=== PATIENT | male | born 1965 | race Caucasian/White ===

== ENCOUNTER 2017-10-16 06:36 | Inpatient (IN) | payer OTHER ==
[~2017-10-16] VITALS: Ht 175.3 cm; Wt 72.6 kg
[2017-10-16] VITALS (12 sets, daily range): BP systolic 126–155; BP diastolic 65–92
--- NOTE | 2017-10-16 06:10 | Anethesia Preoperative Eval ---
Anesthesia Pre-op PMH/ROS General Date of Evaluation: Oct 16, 2017 Time of Evaluation: 07:23 Anesthesiologist: Noe ASA Score: ASA 2 Mallampati Score Class I : Soft palate, uvula, fauces, pillars visible Class II: Soft palate, uvula, fauces visible Class III: Soft palate, base of uvula visible Class IV: Only hard plate visible Mallampati Classification: Class II Surgeon: Virgilio Diagnosis: Neck Pain Surgical Procedure: ACDF C5-6, C4-5, ADR 3-4 Anesthesia History: none Family History: no anesthesia problems Allergies: Coded Allergies: No Known Allergies (Unverified , 10/16/17) Medications: see eMAR Past Medical History Neurologic/Psychiatric: Reports: depression/anxiety PSxH Narrative: Bilateral Hernia Repair Anesthesia Pre-op Phys. Exam Physician Exam Vital Signs Date Time Temp Pulse Resp B/P (MAP) Pulse Ox O2 Delivery O2 Flow Rate FiO2 10/16/17 07:04 97.5 56 17 129/78 98 Room Air Constitutional: NAD Neurologic: CN 2-12 intact Cardiovascular: RRR Respiratory: CTA Gastrointestinal: S/NT/ND Airway Exam Mallampati Score: Class II MO: full ROM: limited Teeth: intact Anesthesia Pre-op A/P Risk Assessment & Plan Assessment: ASA 2 Plan: GA, GlideScope Go, BIS Status Change Before Surgery: No Pre-Antibiotics Dru Grams Ancef IV Given Within 1 Hr of Incision: Yes Time Given: 07:41 Wesly Liu MD Oct 16, 2017 06:10
[~2017-10-16 06:36] MED LIST: Acetaminophen (Non formulary) 100 ML IV ONE; Atropine Inj 1mg/10ml Syr IV PRN; DiphenhydrAMINE 50mg/ml Inj IVP PRN; HYDROcodone/Acetamin 7.5/325 tab ORAL PRN; Hydromorphone 0.5mg/0.5ml inj IVP PRN; Ketorolac 30mg Inj IV PRN; Ketorolac 60mg Inj IV PRN; LORazepam Inj 2mg/ml 1ml IV PRN; LR 1000ml 1,000 ML IVLG SCH; Labetalol 5mg/ml 20ml vial IV PRN; Midazolam 2mg/2ml Inj IVP PRN; NKM; Norco 5mg/325mg tab ORAL PRN; fentaNYL 100 mcg/2 mL IV PRN; oxyCODONE HCL/Acetaminophen 5/325mg ORAL PRN
[2017-10-16] MEDS ORDERED: NS IVPB ONE (07:00)
[2017-10-16] MEDS ORDERED: GENTAMICIN IVPB ONE (07:00)
[2017-10-16] MEDS ORDERED: ceFAZolin 2gm/D5W 50ml Premix IV ONE (07:00)
[2017-10-16] MEDS ORDERED: VITAMIN B125000 MCG PO (07:10)
[2017-10-16] MEDS ORDERED: PERCOCET 5-3251 EACH ORAL (07:11)
[2017-10-16] MEDS ORDERED: Thrombin 5000 units TOPIC ONE (07:13)
[2017-10-16] MEDS ORDERED: Thrombin 5000 units spray kit TOPIC ONE ×2 (07:14→09:00)
[2017-10-16] MEDS ORDERED: Ropivacaine 5mg/ml Vial 30ml INJ ONE (07:14)
[2017-10-16] MEDS ORDERED: Bacitracin 50000 Units Vial ONE (07:14)
[2017-10-16] MEDS ORDERED: Gelfoam Absorbable 1gm powder pkt TOPIC ONE ×2 (07:14→09:00)
--- NOTE | 2017-10-16 07:24 | Pre-Procedure Note/Attestation ---
Pre-Procedure Note/Attestation Complete Prior to Procedure Planned Procedure: bilateral Procedure Narrative: Anterior cervical discectomy and interbody fusion ACDF C6-7, C5-6 Possible ACDF vs. Artificial disc replacement C4-5 Use of auto-, allo-, graft bone Fluoroscopy Indications for Procedure Pre-Operative Diagnosis: Cervical disc degeneration C4-7 Left cervical radiculopathy Attestation I attest that I discussed the nature of the procedure; its benefits; risks and complications; and alternatives (and the risks and benefits of such alternatives ), prior to the procedure, with the patient (or the patient's legal motor vehicle representative). I attest that, if there was a reasonable possibility of needing a blood transfusion, the patient (or the patient's legal motor vehicle representative) was given the [place] [facility] [employer] [facility] standardized written summary, pursuant to the Lorne Vian Blood Safety Act ([place] Health and Safety Code # 1645, as amended). I attest that I re-evaluated the patient just prior to the surgery and that there has been no change in the patient's H&P, except as documented below: Cammie Poole MD Oct 16, 2017 07:24
--- NOTE | 2017-10-16 07:29 | Immediate Post-Op Evaluation ---
Immediate Post-Op Evalulation Immediate Post-Op Evalulation Procedure: ACDF C5-6, C4-5, ADR 3-4 Date of Evaluation: Oct 16, 2017 Time of Evaluation: 14:07 IV Fluids: 1200 LR Blood Products: 0 Estimated Blood Loss: 200 Urinary Output: 550 Blood Pressure Systolic: 150 Blood Pressure Diastolic: 100 Pulse Rate: 92 Respiratory Rate: 16 O2 Sat by Pulse Oximetry: 96 Temperature (Fahrenheit): 97.2 Pain Score (1-10): 3 Nausea: No Vomiting: No Complications 0 Patient Status: awake, reacts, patent, extubated, none Hydration Status: adequate Dru Grams Anecf IV Given Within 1 Hr of Incision: Yes Time Given: 07:41 Wesly Liu MD Oct 16, 2017 07:29
[2017-10-16] MEDS ORDERED: fentaNYL 100 mcg/2 mL IV ONE (07:30)
[2017-10-16] MEDS ORDERED: Dexamethasone 4mg/ml vial ONE (07:30)
[2017-10-16] MEDS ORDERED: Lidocaine 1% Plain 30 ml INJ ONE (07:30)
[2017-10-16] MEDS ORDERED: LR 1000ml ONE (07:30)
[2017-10-16] MEDS ORDERED: Norco 5mg/325mg tab ORAL PRN (07:30)
[2017-10-16] MEDS ORDERED: NS Irrig 1000ml ONE (07:30)
[2017-10-16] MEDS ORDERED: Sterile Water Irrig 1000ml IRRIG ONE (07:30)
[2017-10-16] MEDS ORDERED: Naloxone 0.4mg/ml Inj IVP PRN (07:30)
[2017-10-16] MEDS ORDERED: HYDROcodone/Acetamin 7.5/325 tab ORAL PRN (07:30)
[2017-10-16] MEDS ORDERED: Lidocaine 1% MPF 10mg/ml 5ml ONE (07:30)
[2017-10-16] MEDS ORDERED: Propofol 1,000mg/ 100ml btl IV ONE (07:30)
[2017-10-16] MEDS ORDERED: Zemuron 50mg/5ml Inj IV ONE (07:30)
[2017-10-16] MEDS ORDERED: Heparin 1000 units/ml 1ml Vial ONE (08:12)
[2017-10-16] MEDS: Docusate Sod/Senna tab ORAL SCH ×2 (10:00→18:22)
[2017-10-16] MEDS ORDERED: Tranexamic Acid 1,000 MG in NS 65 ML IVPB ONE (13:00)
--- NOTE | 2017-10-16 15:35 | Diagnostic Imaging Report ---
Indication: Left upper extremity pain, intraoperative Technique: Intraoperative images Comparison: none Findings: Intraoperative images demonstrate surgical tool projected at the C6-7 level, subsequent anterior fusion at C6-7 and C5-6, placement of a disc prosthesis at C4-5 Impression: Intraoperative imaging, as described
[2017-10-16] MEDS ORDERED: ceFAZolin sod 1 GM in D5W 55 ML IV SCH (16:00)
[2017-10-16] MEDS ORDERED: D5 1/2NS w/KCl 20mEq 1,000 ML IV SCH (17:00)
[2017-10-17 00:12] VITALS: BP 138/87
[2017-10-17] MEDS: ceFAZolin sod 1 GM in NS 55 ML IV SCH ×2 (00:21→08:02)
[2017-10-17 04:55] VITALS: BP 153/73
[2017-10-17 08:00] LABS: ANION GAP 6 mmol/L (5-15); BLOOD UREA NITROGEN 8 mg/dL (7-18); CARBON DIOXIDE 28 MMOL/L (21-32); CHLORIDE 105 MMOL/L (98-107); CREATININE 0.7 MG/DL (0.55-1.30); POTASSIUM 3.9 MMOL/L (3.5-5.1); SODIUM 139 MMOL/L (136-145)
[2017-10-17] MEDS: oxyCODONE HCL/Acetaminophen 5/325mg ORAL PRN (08:01)
[2017-10-17] MEDS: Docusate Sod/Senna tab ORAL SCH ×2 (08:44→17:21)
[2017-10-17] MEDS: celeBREX 200mg Cap **SURGERY PATIENTS ONLY ORAL SCH ×2 (08:45→17:22)
--- NOTE | 2017-10-17 08:52 | 48 Hour Post Anesthesia Eval ---
Post Anesthesia Evaluation Procedure: ACDF C5-6, C4-5, ADR 3-4 Date of Evaluation: Oct 17, 2017 Time of Evaluation: 08:50 Blood Pressure Systolic: 140 0: 86 Pulse Rate: 72 Respiratory Rate: 20 Temperature (Fahrenheit): 97.6 O2 Sat by Pulse Oximetry: 98 Airway: patent Nausea: No Vomiting: No Pain Intensity: 3 Hydration Status: adequate Cardiopulmonary Status: stable Mental Status/LOC: patient returned to baseline Follow-up Care/Observations: n/a Post-Anesthesia Complications: none Follow-up care needed: N/A JAIME CURTIS M.D. Oct 17, 2017 08:52
[2017-10-17 09:00] VITALS: BP 165/73
[2017-10-17 12:00] VITALS: BP 134/82
--- NOTE | 2017-10-17 14:16 | Brief Operative Note ---
Immediate Post Operative Note Operative Note Pre-op Diagnosis: Cervical disc degeneration C4-7 Left cervical radiculopathy Post traumatic cervical sprain Procedure: C6-7 C5-6 ACDF C4-5 ADR R ICBG Post-op Diagnosis: SAME Post-op Diagnosis: same as pre-op Surgeon: IZABEL GONZALEZ General Counsel: Alex LEAVITT Anesthesiologist: Harry COSTA Anesthesia: general Specimen: none Complications: none Condition: stable Fluids: CRYSTALLOID Estimated Blood Loss: volume - 50-75 CC Drains: hemovac Implant(s) used?: Yes - Cammie Johnson MD Oct 17, 2017 14:16
--- NOTE | 2017-10-17 14:23 | General Progress Note ---
Progress Note Progress Note STABLE OVERNITE NOTES NEAR TOTAL RESOLUTION OF LUE RADICULAR SX. C/O R IC NECK INCISIONAL PAIN Laboratory Tests Test 10/17/17 06:57 Sodium Level 139 MMOL/L (136-145) Potassium Level 3.9 MMOL/L (3.5-5.1) Chloride Level 105 MMOL/L (98-107) Carbon Dioxide Level 28 MMOL/L (21-32) Anion Gap 6 mmol/L (5-15) Blood Urea Nitrogen 8 mg/dL (7-18) Creatinine 0.7 MG/DL (0.55-1.30) Estimat Glomerular Filtration Rate > 60 mL/min (>60) Glucose Level 100 MG/DL (74-106) Calcium Level 9.0 MG/DL (8.5-10.1) DRAIN 60 CC SINCE THIS AM R IC AND CERVICAL DRSG INTACT PLAN: CONT. DRAIN /ABX UNTIL AM ADVANCE Cammie Walker MD Oct 17, 2017 14:23
[2017-10-17] MEDS: ceFAZolin sod 1 GM in NS 55 ML IVP SCH ×2 (15:07→21:02)
[2017-10-17 15:47] VITALS: BP 138/77
[2017-10-17 20:00] VITALS: BP 126/74
[2017-10-18 04:00] VITALS: BP 135/81
[2017-10-18] MEDS: ceFAZolin sod 1 GM in NS 55 ML IVP SCH ×2 (05:00→13:50)
[2017-10-18 07:44] VITALS: BP 115/73
[2017-10-18] MEDS: celeBREX 200mg Cap **SURGERY PATIENTS ONLY ORAL SCH ×2 (08:28→17:08)
[2017-10-18] MEDS: Docusate Sod/Senna tab ORAL SCH ×2 (08:28→17:08)
[2017-10-18 12:00] VITALS: BP 115/73
[2017-10-18 16:00] VITALS: BP 124/71
[2017-10-18] MEDS: oxyCODONE HCL/Acetaminophen 5/325mg ORAL PRN (17:11)
[2017-10-18] MEDS ORDERED: NS 275ml ONE (17:59)
--- NOTE | 2017-10-19 08:15 | Operative Note - Dictated ---
DATE OF OPERATION: 10/16/2017 SURGEON: Cammie Poole M.D.. PAYROLL LEAD SURGEON: Paras Yanes M.D. ANESTHESIOLOGIST: Wesly Liu M.D. ANESTHESIA TYPE: General endotracheal with fiberoptic intubation. PREOPERATIVE DIAGNOSES: 1. Cervical radiculopathy at C4-C5, C5-C6, and C6-C7 (M50.121, M50.122, and M50.123). 2. Displacement of cervical intervertebral disc with radiculopathy (M50.10). 3. 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 4. Foraminal stenosis of cervical region (M99.81). 5. Cervical neck pain with evidence of disc disease and posttraumatic whiplash syndrome (M50.90). POSTOPERATIVE DIAGNOSES: 1. Cervical radiculopathy at C4-C5, C5-C6, and C6-C7 (M50.121, M50.122, and M50.123). 2. Displacement of cervical intervertebral disc with radiculopathy (M50.10). 3. 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 4. Foraminal stenosis of cervical region (M99.81). 5. Cervical neck pain with evidence of disc disease and posttraumatic whiplash syndrome (M50.90). PROCEDURES: 1. Anterior cervical complete interbody discectomy at C4-C5, C5-C6, and C6-C7. 2. Bilateral anterior cervical foraminotomies at C4-C5, C5-C6, and C6-C7. 3. Anterior cervical interbody fusion and spinal fixation at C5-C6 and C6-C7 with the use of a cage plate construct. 4. Cervical artificial disc replacement at C4-C5. 5. Placement and application of intervertebral biomechanical devices at C4-C5, C5-C6, and C6-C7. 6. Use of the high-powered spine surgical microscope for microdissection. 7. Use of fluoroscopy in needle placement and localization of the spine. 8. Surveillance and supervision of intraoperative SSEP, DSP, and MEP monitoring. 9. Interpretation of intraoperative fluoroscopic images with professional. 10. Right iliac crest bone graft and aspiration through separate fascial and skin incisions with two conical cores of bone retrieved. 11. Placement of an intraoperative Hemovac small drain to separate bulb suction. COMPLICATIONS: None. SPECIMENS: Include evacuated disc material and decompression bone from C4-C5, C5-C6, and C6-C7, not sent for pathology. IMPLANTS: Include: 1. Aesculap ACDF cages, plates, and screws measuring 6 mm in height, 7 degrees of lordosis, and 15 mm in width with 12 mm deep. 2. Brenda LDR 5 mm artificial disc replacement. INDICATION: The patient is a 52-year-old right-hand dominant male, who has developed significant posttraumatic cervical radiculopathy with axial neck pain, which has been resistant/refractory to all modes of conservative treatment including cervical pain management procedures x2. He originally sustained the injury approximately a year and half ago. He is requesting definitive management. No warranties or guarantees as to outcome were implied, expressed, or intended. On his own volition, the patient has elected to undergo the procedure. On the day of the procedure, the patient was reassessed in the preoperative holding area. It was ascertained that his physical and neurological exam has remained unchanged. Written informed consent was obtained. The risks and benefits of spinal surgery were explained in detail to the patient , which included but certainly were not limited to bleeding, infection, nerve or vessel damage, epidural scar, persistent recurrent pain, risks of anesthesia, , need for further complicated surgical procedures, iatrogenic instability, epidural hematoma, failure of implants and hardware, misplacement of implants and hardware, migration of implants and hardware, injury to the esophagus and/or the trachea, heart attack, stroke, bladder injury, massive bleeding, deep venous thrombosis, pulmonary embolism, spinal cord and nerve damage, reflex sympathetic dystrophy, sexual dysfunction, brachial plexus injuries, traction injuries, swallowing difficulties, problems with vocal cords, airway obstruction, postoperative swelling and need for prolonged intubation, persistent dural - esophageal - and tracheal fistula, paralysis, blindness, possible long level surgery, no relief of current symptoms, possible development of new symptoms, possible worsening of symptoms, possible need for intraoperative change in procedure, possible need for fusion of adjacent levels of the spine as determined intraoperatively, and possible intraoperative fracture. The patient understands the risks of the procedure as above and elected to proceed. DESCRIPTION OF PROCEDURE: The patient was brought to the operating room and placed supine on the radiolucent OR table. General fiberoptic anesthesia was induced by Dr. Liu. Invasive lines for intraoperative hemodynamic monitoring were inserted. A surgical timeout was conducted according to universal protocol. IV antibiotics in the form of 2 g of Ancef and 60 mg of gentamicin were administered. An interscapular gel roll was placed. A Hernandez intra bladder catheter was inserted using aseptic technique without complications. Head/chin halter traction was applied through a developmental mathematics instructor bar on a Kunz frame with intermittent 5 and 10 pounds of traction applied depending on the portion of the procedure. Overextension of the cervical spine was avoided at all times, particularly in view of cervical spinal stenosis. The right iliac crest was also prepped and draped and isolated as was the neck and upper chest. The shoulders and the bilateral upper extremities were taped to the side of the patient to start the intraoperative radiographic examination and surgical access. Excessive traction of the arms was avoided. Under fluoroscopic images, appropriate landmarks were delineated on the skin. The right-sided Garsia-Laws/Cloward transverse incision was delineated and extended over the C5 vertebral body. The incision was then pre-infiltrated with ropivacaine 0.5%. After the area was prepped, draped, and isolated, the minimally invasive bone graft harvester was then brought onto the field. The skin overlying the right iliac crest and the periosteum was infiltrated with 0.5% ropivacaine. Next, a 2.5 cm incision was made paralleling the crest approximately 6 cm proximal to the anterior superior iliac spine. Under fluoroscopic imaging, the coring trephine was positioned and then two cores of 12 x 4 mm bone were then harvested using two separate passes. Also, 60 mL of bone marrow was aspirated through the same incision. Extreme care was taken to stay between the inner and outer table of the iliac crest. The conical defects created in the iliac crest were then back filled with Surgifoam hemostatic agent and a two-layer closure was undertaken using 2-0 Vicryl and then arcenio for the skin and sterile dressing was applied. Our attention was then turned to the anterior cervical approach. the appropriate landmarks were then palpated including the hyoid bone at C3, the thyroid cartilage of C4-C5 as well as the cricoid at C6 and further verification was achieved. Following incision using a #15 blade, The superficial cervical fascia containing the platysma was exposed. Hemostasis was achieved using electrocautery. The platysma was then elevated laterally using a combination of sharp andcre blunt dissection. The platysma was then divided in line with the incision. Next, the interval between the sternocleidomastoid muscle and the strap muscles was identified. The superficial fascia was then incised. One branch of the external jugular vein was encountered and was safely retracted out of the surgical plane. The anterior border of the sternocleidomastoid was then palpated and mobilized approximately 2 cm above and 2 cm below the actual incision in order to enhance our deep exposure. Using a combination of sharp and blunt dissection, the interval between the sternocleidomastoid muscle including the middle layer of the deep cervical fascia, which encased the strap muscles as well as the trachea, esophagus, and thyroid gland was then dissected. The omohyoid and sternohyoid were then taken medially. Care was taken not to enter the visceral fascia enclosing the esophagus, trachea, and thyroid gland. The omohyoid muscle which ran obliquely across the operative field was identified and this was mobilized and retracted inferiorly without any need for transection. Next, the carotid sheath was palpated laterally. The middle cervical fascia was then incised medial to the sheath. A plane was developed between the medial edge of the carotid sheath and the midline structures including the trachea and esophagus. At this point, the anterior aspect of the cervical spine was palpated including a tough prevertebral fascia. Blunt dissection was carried with the use of Kittner clamps and elevators. One aberrant branch of the superior and transverse branches of the superior and inferior thyroid veins and artery were countered crossing the field and these were then ligated and then transected. Extreme care was taken not to provide excessive traction in order to avoid injury to the superior laryngeal nerve. Using Cloward hand-held retractors, the deep prevertebral cervical fascia was divided longitudinally in the midline with the use of a combination of Metzenbaum scissors. The fascia was then mobilized both cephalad and caudad. The longus colli muscles bordering each side of the vertebral bodies were then encountered and elevated in a subperiosteal fashion with a combination of bipolar and unipolar electrocautery. The double bent spinal needle was then placed at what was felt to be the C6-C7 disc space, which was verified with the use of biplanar C-arm fluoroscopy. Following confirmation, additional hemostasis of the venous plexus anterior to the longus colli muscles was performed. The max access self-retaining retractor system from the Nu[employer]asive set was then brought onto the field and mounted. Care was taken to avoid direct pressure on the visceral structures including the esophagus and trachea medially and the carotid sheath laterally and the retractors were then alternately relaxed every 30 minutes. Additionally, the anesthesiologist was instructed to deflate the cuff of the endotracheal tube as well every 30 minutes in order to again minimize the risk of injury to the superior laryngeal and recurrent laryngeal nerves and also branchial nerves. Once the level was identified, disc space prep was undertaken. A rectangular annulotomy window was then created and disc material was then evacuated using a combination of variable angled curette from the Macoscope as well as the Microsect sets. At the C6-C7 level, anterior osteophytes were removed. Care was taken to avoid excessive resection of the uncinate joint. The discectomy was continued with further disc preparation and endplate preparation using a high-speed cory and it was then extended to the level of the posterior longitudinal ligament. Next, a ligament flap was raised and the ligament was excised. There was noted to be compression of the spinal cord at that level. Rhoton microdissectors were then brought onto the field and there was noted to be again severe foraminal stenosis on the left and moderate to severe on the right. In a stepwise fashion, partial resection of the uncinate joint was undertaken in order to further mobilize the segment. Once the segment was mobilized, Am[place]st distractor pins were introduced and this enhanced the disc space preparation. . The high-powered surgical microscope was then brought onto the field. At this point, bilateral foraminotomies were performed first by resecting the posterior longitudinal ligament and receiving any subligamentous disc fragments and then each fragment was then palpated with the use of the microdissector probe and then using variable angle and Kerrison punches, foraminotomies were performed on each side. A trial implant was then introduced after endplate preparation was felt to be adequate. Hemostasis was achieved using FloSeal Hemostatic Matrix. A 6 mm height, 7 degree lordotic cage provided the optimal fit and fill without overdistraction. Continuation of neurological monitoring did not reveal any changes in signal. The axial cage was then packed with a biocomposite bone graft material and then impacted into place under biplanar fluoroscopy and then secured using two 4.0 mm screws. Next, the [place]st retractors were then remobilized as was the max access retractor to expose the C5-C6 level. Marked anterior osteophytosis was noted, which required extensive bony resection in order to expose the disc space. At this time, again using parallel distraction of the [place]st retractor in a stepwise fashion, the disc space was then developed and then prepared. There was noted to be markedly severe foraminal stenosis after takedown of the posterior longitudinal ligament on the left side, moderate to severe on the right. The shoulder of the root was then exposed down to the level of the C6 pedicle. The foramen on the left was palpated using probes from the Rhoton set and a nerve hook was used laterally to ensure removal of all disc fragments. Central decompression was undertaken. Further osteophytes causing compression of the neural elements was then removed with a high-speed cory. Again, extreme care was taken to preserve the subchondral bone plates and only removed the cartilaginous endplates. In a similar fashion, the trial was introduced and a 6 mm, 7 degree lordotic cage was selected and then impacted and secured in place using two screws. At this point, the retractors were then mobilized again to expose the C4-C5 level and anterior discectomy was then again performed in a similar fashion. Because of the kyphosis at this level and the lack of any subligamentous fragments, it was elected not to excise and resect the posterior longitudinal ligament. Using the high-power surgical microscope again, care was taken to remove only one-third of the uncinate joint at each level. Once bilateral foraminotomies were undertaken, the Amherst distractors were attached using self-locking nuts. Next, a 5 mm medium-sized LDR implant trial was then brought onto the field and inserted into the disc space. The [place]st distraction was released while assessing the trial height. AP and lateral projections were obtained using a fluoroscope and it was noted that the implant was centered in both the AP and medial lateral position. Next, the actual implant was opened, mounted on the handle laser machine operator, and then impacted into place using gentle blows of the mallet. Implant position was then optimized under fluoroscopy. Next, sustained Valsalva maneuver to 40 mmHg pressure was conducted without any evidence of any CSF leak. Meticulous attention was made for hemostasis with the use of Surgifoam and hemostatic matrix as well as bone wax. Because of the multilevel nature of the procedure, it was elected to leave a small Hemovac drain in the bed of the wound in order to evacuate any potential residual microscopic bleeding. The wound was closed in two layers followed by Dermabond. The patient tolerated the procedure well and was transferred to the recovery room in stable condition. Cammei Poole M.D. DR: MADONNA JOB#: [id number] CC: DORIS
--- NOTE | 2017-10-19 22:02 | Discharge Summary ---
Discharge Summary Hospital Course Date of Admission Oct 16, 2017 at 06:36 Date of Discharge Oct 18, 2017 at 18:00 Admitting Diagnosis neck pain with radiculopathy Reason for Hospitalization: ELECTIVE SURGERY DANG Khan is a 52 year old male who was admitted on Oct 16, 2017 at 06:36 for neck pain with radiculopathy. Patient was admitted for elective surgery Procedures s/p 10/16/[address] Poole 1. Anterior cervical complete interbody discectomy at C4-C5, C5-C6, and C6-C7. 2. Bilateral anterior cervical foraminotomies at C4-C5, C5-C6, and C6-C7. 3. Anterior cervical interbody fusion and spinal fixation at C5-C6 and C6-C7 with the use of a cage plate construct. 4. Cervical artificial disc replacement at C4-C5. 5. Placement and application of intervertebral biomechanical devices at C4-C5, C5-C6, and C6-C7. 6. Use of the high-powered spine surgical microscope for microdissection. 7. Use of fluoroscopy in needle placement and localization of the spine. 8. Surveillance and supervision of intraoperative SSEP, DSP, and MEP monitoring. 9. Interpretation of intraoperative fluoroscopic images with professional. 10. Right iliac crest bone graft and aspiration through separate fascial and skin incisions with two conical cores of bone retrieved. 11. Placement of an intraoperative Hemovac small drain to separate bulb suction. Hospital Course s/p surgery course of recovery uneventful pain management initially IVF empiric abx Hemovac, output closely monitored neurovascular intact dressing changed prior to discharge by surgeon incision C/D/I Hemovac dc prior to discharge ambulated voided DVT prophylaxis bowel regimen instituted tolerated diet cleared for dc outpt fup with surgeon as advised dc instructions and scripts provided by surgeon FINAL DIAGNOSIS 1. Cervical radiculopathy at C4-C5, C5-C6, and C6-C7 (M50.121, M50.122, and M50.123). 2. Displacement of cervical intervertebral disc with radiculopathy (M50.10). 3. 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 4. Foraminal stenosis of cervical region (M99.81). 5. Cervical neck pain with evidence of disc disease and posttraumatic whiplash syndrome (M50.90). 6. S/P ACDF C5-6, C4-5, ADR 3-4 Discharge Medications Continued Medications: Cyanocobalamin (Vitamin B-12) (Vitamin B12) 5,000 Mcg Tab.rapdis 5000 MCG PO DAILY, TAB Oxycodone/Acetaminophen 5-325* (Percocet 5-325 Mg Tablet*) 1 Each Tablet 1 TAB ORAL Q6H PRN for For Pain, #30 TAB 0 Refills Discharge Condition Upon Discharge: stable Discharge Disposition Patient was discharged to Home (01) Discharge Diagnoses: Discharge Instructions Discharge Instructions Special Instructions I have been assigned to complete a D/C Summary on this account. I was not involved in the patient management Tosha Lyle NP ([place]anchtein) Oct 19, 2017 22:02
== END 2017-10-18 18:00 | disposition home or self-care (01) | DRG 473 ==
LOC: SDSOVERFLO 06:36 → 3E 15:11
DX: M50.121 Cervical disc disorder at C4-C5 level with radiculopathy (principal); M48.02 Spinal stenosis, cervical region; S13.4XXS Sprain of ligaments of cervical spine, sequela; V89.2XXS Person injured in unspecified motor-vehicle accident, traffic, sequela
CPT/HCPCS: 36415; 72040; 76001; 80048; 86850; 86900; 86901; 87081; 94003; 94150; C9399; J2405